=== PATIENT | male | born 1945 | race Caucasian/White ===

== ENCOUNTER 2017-02-09 03:39 | Observation (INO) | payer MEDICARE, BC ==
[2017-02-09] MEDS ORDERED: Nitroglycerin 2% OINT* 1 GM PAK TOPICAL ONE (03:49)
[2017-02-09 04:44] LABS: Hematocrit 40 % (42-52); Hemoglobin 13.5 g/dl (14.0-18.0); Mean Corpuscular HGB Conc 34 g/dl (31-36); Mean Corpuscular Hemoglobin 30 pg (27-31); Mean Corpuscular Volume 88 fL (80-94); Mean Platelet Volume 9 um3 (7.4-10.4); Red Blood Count 4.56 10^6/ul (4.0-5.4); Red Cell Distribution Width 13 % (10.5-15); White Blood Count 4.8 10^3/ul (3.5-10.8)
[2017-02-09 05:01] LABS: BUN/Creatinine Ratio 16.3 (8-20); Calcium 9.2 mg/dL (8.6-10.3); EGFR African American 113.4 (>60); EGFR Non-African American 88.2 (>60); Globulin 2.2 g/dL (2-4); Magnesium 2.2 mg/dL (1.9-2.7); Potassium 3.9 mmol/L (3.5-5.0); Total Bilirubin 0.5 mg/dL (0.2-1.0); Total Protein 6.2 g/dL (6.4-8.9)
[2017-02-09 05:03] LABS: Troponin I 0.01 ng/mL (<0.04)
--- NOTE | 2017-02-09 07:00 | ED ---
Lashay Dubose Matthew, scribed for Gennaro Cagle on 02/09/17 at 0408 . HPI Chest Pain - HPI Summary HPI Summary: A 71 y/o male presents to the ED with mid-sternal chest pain since 02:30 this morning. The pain is currently rated 2/10 in severity, and described as pressure. 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 He had a similar episode two weeks ago. Hx of unstable angina 5 years ago. At that time the patient had a cardiac catheterization without stent placement. FHx of CAD. He has not been having SOB with ambulation. - History of Current Complaint Time Seen by Provider: 02/09/17 03:42 Hx Obtained From: Patient Onset/Duration: Started Days Ago, Atraumatic, Still Present Timing: Constant Initial Severity: Moderate Current Severity: Mild Pain Intensity: 2 Pain Scale Used: 0-10 Numeric Chest Pain Location: Mid Sternal Chest Pain Radiates: No Character: Pressure/Squeezing Aggravating Factor(s): Nothing Alleviating Factor(s): NTG 123 Associated Signs and Symptoms: Positive: Chest Pain, Palpitations. Negative: Shortness of Breath, Nausea, Vomiting, Edema - Allergy/Home Medications Allergies/Adverse Reactions: Allergies Allergy/AdvReac Type Severity Reaction Status Date / Time local anestetic from dentist AdvReac See Comment Uncoded 02/09/17 04:10 Home Medications: Home Medications Cholecalciferol [Vitamin D] 1,000 unit PO 02/09/17 [History] FLUoxetine CAP* [PROzac CAP*] 40 mg PO DAILY 02/09/17 [History Confirmed ] Lovastatin [Mevacor] 40 mg PO 02/09/17 [History] Metoprolol Tartrate [Lopressor] 50 mg PO 02/09/17 [History] Multiple Vitamins W/ Minerals [Multivitamin Adults] 1 tab PO 02/09/17 [History] Nitroglycerin 0.4 mg SL 02/09/17 [History] PMH/Surg Hx/FS Hx/Imm Hx Endocrine/Hematology History: Denies: Hx Anticoagulant Therapy Cardiovascular History: Reports: Hx Angina Respiratory History: Denies: Hx Asthma Psychiatric History: Denies: Hx Substance Abuse - Surgical History Surgery Procedure, Year, and Place: cardiac cath 2010 - Family History Known Family History: Positive: Cardiac Disease - Social History Alcohol Use: None Substance Use Type: Reports: None Hx Tobacco Use: No Review of Systems Constitutional: Negative Eyes: Negative ENT: Negative Positive: Palpitations, Chest Pain Respiratory: Negative Negative: Shortness Of Breath Gastrointestinal: Negative Negative: Vomiting, Nausea Genitourinary: Negative Musculoskeletal: Negative Negative: Edema Skin: Negative Neurological: Negative Psychological: Normal All Other Systems Reviewed And Are Negative: Yes Physical Exam Triage Information Reviewed: Yes Vital Signs Reviewed: Yes Appearance: Positive: Well-Appearing, No Pain Distress Skin: Positive: Warm, Skin Color Reflects Adequate Perfusion, Dry Head/Face: Positive: Normal Head/Face Inspection Eyes: Positive: EOMI, LAUREN ENT: Positive: Normal ENT inspection Neck: Positive: Supple, Nontender Respiratory/Lung Sounds: Positive: Clear to Auscultation, Breath Sounds Present Cardiovascular: Positive: RRR, Pulses are Symmetrical in both Upper and Lower Extremities Abdomen Description: Positive: Nontender, Soft Bowel Sounds: Positive: Present Musculoskeletal: Positive: Normal, Strength/ROM Intact Neurological: Positive: Normal, Sensory/Motor Intact, Alert, Oriented to Person Place, Time Psychiatric: Positive: Affect/Mood Appropriate Diagnostics - Laboratory Result Diagrams: 02/09/17 04:35 02/09/17 04:35 Lab Statement: Any lab studies that have been ordered have been reviewed, and results considered in the medical decision making process. - Radiology CXR Xray Interpretation: No Acute Changes Radiology Interpretation Completed By: ED Physician - EKG 04:22 Cardiac Rate: Bradycardia - 50 bpm EKG Rhythm: Sinus Bradycardia Ectopy: PVCs Chest Pain Course/Dx - Course Assessment/Plan: A 71 y/o male presents to the ED with mid-sternal chest pain since 02:30 this morning. The pain is currently rated 2/10 in severity, and described as pressure. 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 He had a similar episode two weeks ago. Hx of unstable angina 5 years ago. At that time the patient had a cardiac catheterization without stent placement. FHx of CAD. He has not been having SOB with ambulation. Labs were reviewed and show troponin of 0.01. CXR showed no acute cardiopulmonary disease. EKG showed Sinus brachycardia at [address] Berg was notified of the admission. Disccused the case with Dr. Murrieta who will admit the patient. - Diagnoses Provider Diagnoses: Chest pain, rule out acute myocardial infarction - Provider Notifications Discussed Care Of Patient With: Dr. Berg (Hospitalist) at 05:12 -- Notified of admission. Dr. Murrieta (Hospitalist) at 06:59 -- Notified of patient's history and will admit the patient. Discharge - Discharge Plan Condition: Stable Disposition: ADMITTED TO [facility] Referrals: Dolores Quinones MD [Primary Care Provider] - The documentation as recorded by the Lashay jay Matthew accurately reflects the service I personally performed and the decisions made by Gurjit gross Emmanuel.
--- NOTE | 2017-02-09 08:29 | RAD ---
Indication: Chest pain. Single frontal view of the chest performed at 0358 hours was reviewed. Comparison is made with previous exam dated December 08, 2012. No mediastinal shift is noted. Heart is of normal size and configuration. Lung rousseau appear clear. IMPRESSION: NO ACTIVE CARDIOPULMONARY DISEASE IS NOTED.
[2017-02-09] MEDS: Aspirin EC Low Dose* 81 MG TAB.EC PO SCH (11:35)
[2017-02-09] MEDS: FLUoxetine CAP* 20 MG PO SCH (11:36)
[2017-02-09] MEDS: Metoprolol Succinate XL TAB* 25 MG PO SCH (13:11)
--- NOTE | 2017-02-09 14:49 | RAD ---
Edited for charges. Indication: Chest pain. Myocardial perfusion scan was performed utilizing 1 day protocol. Rest myocardial perfusion was performed after intravenous injection of 10.4 mCi of technetium 99m tetrofosmin. Exercised stress study was performed and the maximum heart rate achieved was 96% of the maximum predicted value. There is normal size left ventricle with homogeneous distribution of the radiotracer throughout the left ventricle. There is no definite fixed or reversible perfusion defect identified. The ejection fraction at stress is 69%. Evaluation of wall motion demonstrates no focal wall motion abnormality. IMPRESSION: No evidence of fixed or reversible perfusion defect is identified. Normal ejection fraction. ASSESSMENT: Low risk Based on imaging criteria from ACC/AHA 2002 Guideline Update for the Management of Patients With Chronic Stable Angina Table 23. Noninvasive Risk Stratification. MTDD
[2017-02-09] MEDS ORDERED: Atorvastatin* 10 MG TAB PO SCH (21:00)
[2017-02-09] MEDS ORDERED: Metoprolol Succinate XL TAB* 25 MG PO SCH (21:00)
--- NOTE | 2017-02-09 23:43 | CONS ---
CARDIOLOGY CONSULT REPORT: DATE OF CONSULT: 02/09/17 INDICATION FOR CONSULT: The patient presents with chest discomfort and new- onset atrial fibrillation, assess cardiac status. HISTORY OF PRESENT ILLNESS: The patient is a very pleasant 71-year-old gentleman known to me from the distant past dating back to 2011 when he had an abnormal stress test developing ST-segment changes, for which he underwent a cardiac catheterization, which revealed normal left ventricular systolic function with an EF of 55%. There was 55% to 60% proximal lesion in the first diagonal branch in its worse view. There was only mild disease in the LAD and circumflex and minimal disease in the right coronary artery and medical management was pursued. He has a history of hypertriglyceridemia as well with a low HDL. He has done well since that time until more recently now 2 weeks ago , he woke up between the hours of 1 to 3 a.m., got up and went to bathroom, when he came back and lied down, he felt a very mild pressure sensation in his chest. He took one nitroglycerin and within 2 minutes, it was gone. He did not check his pulse at that time. Last night, he woke up at 2:30 in the morning and he noted moderate pressure in his chest. He took a nitroglycerin almost immediately. It started easing off, but then he noticed his pulse was irregular with rapid spells and slowing spells. He ended up waiting 2 or 3 minutes, then they called the paramedics. The paramedics came and found he was in atrial fibrillation. They did not give him any more nitroglycerin, but they repeated the EKG multiple times and found the atrial fibrillation. Vital signs were obtained starting at 3:03 with a blood pressure of 110/69, pulse was 86. The patient had received aspirin therapy. Vital signs later were 151/64 with a pulse of 94 and back down to 130s/ with pulse of 105 to 109. When he presented to the emergency room, an EKG was done at 3:49 a.m. and that EKG demonstrated normal sinus rhythm with 1 PVC. There were no acute ST-T wave changes seen. Since that time on, he has had no further atrial fibrillation. He has had PVCs. His cardiac enzymes were negative and he underwent an exercise nuclear stress test during which time he was exercised by standard Mateusz protocol to 8 minutes 49 seconds achieving 10.1 METs, heart rate to 145, achieving 96% of age predicted maximum heart rate with a normal 1 minute recovery heart rate. He had a normal blood pressure response to exercise. There was a typical minimal chest discomfort not like the type he had at home that was worse that changed with respiration. There were no definitive EKG changes of ischemia noted. The report dictated by Dr. Rossana Magdaleno commented that there were no fixed or reversible perfusion defects. The ejection fraction was 69% with no wall motion abnormalities. It was felt to be a low-risk nuclear portion as well as a low-risk EKG portion. In talking with them, he has not had any other symptoms like this before and both of these seemed to occur during the middle of the night. Whether or not they were present when he woke up the first time, went to the bathroom, and then went back to bed is unclear but he had no specific chest discomfort when he was walking to and from the bathroom. When I asked them whether or not he snores quite a bit, he says he snores extensively but he has never been worked up for any sleep apnea. PAST MEDICAL HISTORY: Includes hyperlipidemia as well as chronic ischemic heart disease, moderate in nature. PAST SURGICAL HISTORY: Just his cardiac catheterization in 2010. FAMILY HISTORY: Positive for cardiac disease. SOCIAL HISTORY: He does not smoke or drink. REVIEW OF SYSTEMS: Constitutional: Negative. Eyes: Negative. ENT: Negative. Cardiac positive for the chest discomfort and palpitations as outlined above. Respiratory: Negative. No shortness of breath. Gastrointestinal: Negative. No vomiting, nauseousness. : Negative. Musculoskeletal: Negative. Skin: Negative. Extremities: No edema. Neuro: Negative. Psychological: Normal. PHYSICAL EXAM: When I see him now reveals pleasant gentleman in no acute distress. Blood pressure 130/74, pulse is in the 40s to 60s, O2 saturation 99% on room air, respirations 18. Neck is supple. No increased JVP. Carotid with good upstroke and volume without bruits. Conjunctivae are pink. Sclerae clear. Lungs reveal no accessory muscle usage. There is good excursion. Lungs are clear to A and P with no active rales, rhonchi, or wheezes. Heart reveals no visible heaves. No palpable heaves or thrills. Normal S1, S2 with no S3, S4, or gallop. No significant systolic or diastolic murmur appreciated. Abdomen is soft, nontender, without organomegaly. Peripheral pulses are intact. Femoral pulse present without bruit. Neuro: The patient is alert and oriented with normal mentation. Musculoskeletal: The patient with normal gait. Psychiatric: The patient with normal affect. DIAGNOSTIC STUDIES/LAB DATA: Laboratory results revealed white count of 4800, hemoglobin and hematocrit of 13.5 and 40, platelet count of 146,000. Sodium 137 , potassium 3.9, chloride 107, bicarb 25, BUN and creatinine of 14 and 0.8. Troponin 0.01, 0.01, 0.00. Magnesium is 2.2 and calcium 9.2, lactic acid 1.9, total protein 6.2. B-natriuretic peptide 102. Chest x-ray report showed no active cardiopulmonary disease. Reviewing the EKGs from the paramedics in transit, the first one with a rhythm strip at 2:55 showing irregularly irregular rhythm suggesting atrial fibrillation with R-R interval as high as 155 to 160 range. A 12-lead EKG done at 0301 showed the atrial fibrillation with a heart rate of 98, third one at 0321 showed heart rate of 104, and fourth one at 0326 showed heart rate of 97, all with atrial fibrillation. OVERALL ASSESSMENT: Ravi Boston presents now with a new-onset paroxysmal atrial fibrillation, converted spontaneously to sinus rhythm on arrival in the hospital. At this point in time, his [id number] score is only 1 and he is currently on baby aspirin therapy and for now we could continue that daily. I would consider increasing his beta patricia, but his baseline pulse rate has been low, but that is mostly within sitting around not doing anything. He does have a chronotropic response with exercise as we were able to increase his heart rate as high as 140 with exercise and his atrial fibrillation rate was as high as the 150s 9 R-R intervals). Consideration to adding 12.5 mg of metoprolol succinate in the evening would be appropriate. In the meantime, given the fact that he does snore significantly, we will get a overnight pulse ox on him off oxygen, so that we can monitor and see whether or not he drops his O2 saturations. He already has had a magnesium and potassium and they are not that grossly abnormal. At this point in time, I will discuss with you whether or not you have recent thyroid functions on him as well to complete the workup. We will consider getting an echocardiogram on him which could be done first thing tomorrow morning to assess his left and right atrial sizes in light of the paroxysmal atrial fibrillation. Thank you very much for asking us to see him and I will follow him with you. CC: Dr. Dolores Quinones * [id number]/[facility] #: [id number] MTDD
[2017-02-10 08:04] VITALS: BP 99/63
[2017-02-10] MEDS: Aspirin EC Low Dose* 81 MG TAB.EC PO SCH (08:46)
[2017-02-10] MEDS: FLUoxetine CAP* 20 MG PO SCH (08:46)
[2017-02-10] MEDS: Metoprolol Succinate XL TAB* 25 MG PO SCH (08:47)
--- NOTE | 2017-02-10 10:09 | ECHO ---
Patient: HERI HAWKINS Rec#: [id number] : 1945 Date: 02/10/2017 Age: 71y Height: 177.8 cm / 70.0 in Weight: 86.18 kg / 189.9 lbs Sex: M BSA: 2.04 Room#: 446 Admit Date#: 02/09/2017 Type: Inpatient Referring: Arthur Morris MD Reading: Arthur Morris MD Internet Marketing Analyst: Humera Adams NILSA CC: Dolores Quinones MD Transthoracic Echocardiogram Indication: PAF BP: 121/65 HR: 54 Rhythm: Bradycardia Findings History: HLD,CAD,ischemic heart disease. Technical Comments: The study quality is good. Comp[leted at 1008. Left Ventricle: The left ventricular chamber size is normal. Global left ventricular wall motion and contractility are within normal limits. Left ventricular systolic function is at the lower limits of normal. The estimated ejection fraction is 50-55%. Abnormal left ventricular diastolic filling is observed, consistent with impaired relaxation. The absence of left atrial enlargement suggests this finding is not chronic and may not have clinical significance. Left Atrium: The left atrial chamber size is normal. Right Ventricle: The right ventricular cavity size is normal. The right ventricular global systolic function is mildly reduced. Right Atrium: The right atrial cavity size is normal. Aortic Valve: The aortic valve is trileaflet. There is trace to mild aortic regurgitation. There is no evidence of aortic stenosis. Mitral Valve: The mitral valve leaflets are mildly thickened. There is a trace of mitral regurgitation. There is no evidence of mitral stenosis. Tricuspid Valve: The tricuspid valve leaflets are normal. There is trace to mild tricuspid regurgitation. Unable to estimate the right ventricular systolic pressure. There is no tricuspid stenosis. Pulmonic Valve: The pulmonic valve appears normal. There is trace to mild pulmonic regurgitation. There is no pulmonic stenosis. Pericardium: A pericardial fat pad is visualized. Aorta: There is no dilatation of the ascending aorta. There is no dilatation of the aortic arch. There is no dilation of the aortic root. Pulmonary Artery: The main pulmonary artery appears normal. Venous: The venous system is not well visualized. Conclusions Left ventricular systolic function is at the lower limits of normal. The estimated ejection fraction is 50-55%. No significant valvular disease: There is trace to mild aortic regurgitation. There is a trace of mitral regurgitation. There is trace to mild tricuspid regurgitation. There is trace to mild pulmonic regurgitation. No reports of prior studies offered for comparison. Measurements Name Value Normal Range RVIDd (AP) 2D 4 cm (0.9 - 2.6) RVDdMajor (2D) 2.6 cm (2.2 - 4.4) RAd ISD 4CH 5.6 cm (3.4 - 4.9) RA (A4C)W 3.1 cm (2.9 - 4.6) IVSd (2D) 1 cm (0.6 - 1) LVPWd (2D) 1.3 cm (0.6 - 1) LVIDd (2D) 3.5 cm (3.6 - 5.4) LVIDs (2D) 2.9 cm - LV FS (2D) 17 % (25 - 45) Aortic Annulus 2.1 cm (1.4 - 2.6) Ao root diameter (2D) 3.5 cm (2.1 - 3.5) Ascending Ao 3.1 cm (2.1 - 3.4) Aortic arch 2.6 cm (1.8 - 3.4) Descending Ao 0.7 cm - LA dimension (AP) 2D 3.7 cm (2.3 - 3.8) LAd ISD 4CH 6 cm (2.9 - 5.3) LA ISD 4CH W 3.8 cm (2.5 - 4.5) Name Value Normal Range LA ESV SP 4CH (A/L) 46 ml - LA ESV SP 2CH (A/L) 70 ml - LA ESV BP (A/L) 58 ml - LA ESV BP (A/L) index 28.53 ml/m2 - LA ESV SP 4CH (MOD) 43 ml - LA ESV SP 2CH (MOD) 68 ml - Name Value Normal Range MV E-wave Vmax 0.5 m/sec - MV deceleration time 327 msec - MV A-wave Vmax 0.6 m/sec - MV E:A ratio 0.83 ratio - LV septal e' Vmax 0.07 m/sec - LV lateral e' Vmax 0.14 m/sec - LV E:e' septal ratio 7.14 ratio - LV E:e' lateral ratio 3.57 ratio - Name Value Normal Range AV Vmax 1.2 m/sec - AV VTI 31.1 cm - AV peak gradient 6.11 mmHg - AV mean gradient 3.22 mmHg - LVOT Vmax 1.1 m/sec - LVOT VTI 24.4 cm - LVOT peak gradient 4.81 mmHg - LVOT mean gradient 2.12 mmHg - AR PHT 669 msec - AR peak gradient 31.62 mmHg - Name Value Normal Range TR Vmax 2.4 m/sec - TR peak gradient 24 mmHg - RAP 8 mmHg - RVSP 32 mmHg - Name Value Normal Range PV Vmax 0.9 m/sec - PV peak gradient 2.92 mmHg -
--- NOTE | 2017-02-10 14:59 | HP ---
HISTORY AND PHYSICAL: DATE OF ADMISSION: 02/09/17 HISTORY OF PRESENT ILLNESS: Ravi Vasquez is a 71-year-old man admitted with chest pain and palpitations. The patient has a history of coronary artery disease. He had an abnormal stress test in 2011. He underwent a cardiac catheterization. He had a normal ejection fraction, 55% to 60% proximal first diagonal stenosis, mild LAD and circumflex disease, minimal right coronary artery disease. He was placed on medical management. He has been on beta- patricia, statin, see below. Two weeks ago, he awoke to go to the bathroom to urinate and on getting back to bed, had unusual pressure in his chest, so he took nitroglycerin under his tongue and the pressure was gone in 2 minutes. He called the cardiology office and was told to let them know if this happened again. Last night, he had chest pressure again at night, which was worse tahn the time before. The nitroglycerin he took lessened the pain, but it did not go away and he noted intermittent fast beating of his heart, lasting 15 to 20 seconds, so he called 911. When the horseradish maker came, they gave him aspirin 81 mg x4. The patient believes he had pressure for about an hour in the ER, but he did not get more nitroglycerin. It has now resolved. He had been active over the weekend doing chores at home in the kitchen and doing laundry. He did not have any chest pain with that. He generally walks around the perimeter at [facility] and has not had chest pain doing that. With the chest pain he had last night, he had no jaw or arm discomfort, shortness of breath, nausea, or diaphoresis. PAST MEDICAL HISTORY: Significant for the cardiac cath as noted in 2011. He has a history of depression for which he is on fluoxetine (see below). CURRENT MEDICATIONS: 1. Fluoxetine 20 mg daily. 2. Metoprolol XL 25 mg daily. 3. Aspirin 81 mg daily. 4. Lovastatin 40 mg daily. 5. Fish oil 1 daily. 6. Multivitamins 1 every other day. 7. Vitamin D 2000 units every other day. 8. Calcium 1 every other day (he is not sure exactly of these doses because his puts them out for him). ALLERGIES: None. INJURIES: None significant. INFECTIONS: He had a recent URI. FAMILY HISTORY: Positive for coronary artery disease. His father of an CO. SOCIAL AND PERSONAL HISTORY: The patient is retired. He lives at [facility] in a cottage. His has physical disabilities and he helps care for her. He has to help dress her. He does most of the chores around the house. HABITS: Tobacco: None. EtOH: No significant alcohol intake. REVIEW OF SYSTEMS: General: His energy has been lower with his recent cold, but had been better in the last few days. He denied fevers, chills, or sweats. He generally sleeps well. His appetite is good and his weight has gone down 10 pounds over the last 6 months by decreasing his calorie and increasing his exercise. Skin: Negative. HEENT: See above. He is slightly hard of hearing. Nodes: He believes he had some lymph node swelling with his URI, which has resolved. Heme: Negative. Endocrine: Negative. Respiratory: Negative. Cardiovascular: See above. GI: Negative. : Negative. Musculoskeletal: Negative. Neuro: He has occasional tension headaches. Psych: He has history of depression. His mood is good when he is on fluoxetine. PHYSICAL EXAMINATION GENERAL: He is a well-developed, well-nourished male, in no acute distress. VITAL SIGNS: Blood pressure 125/67, pulse 50, respirations 20, temperature 98.1 , and O2 sat 95%. SKIN: Warm and dry. HEENT: Mucous membranes are moist. NECK: Nodes are without adenopathy. Neck is without thyromegaly or bruits. CHEST: Clear. HEART: Regular. S1 and S2. No murmurs, gallops, or rubs. ABDOMEN: Soft with mild suprapubic tenderness. No masses or organomegaly. Bowel sounds are normal. EXTREMITIES: Without cyanosis, clubbing, or edema. NEUROLOGIC: Without gross focal or lateralizing signs. DIAGNOSTIC STUDIES/LAB DATA: CBC: WBC 4.8, H and H 13.5/40, MCV 88, PLT 146, 000. This H and H and platelet count is normal for him. INR 0.98 and PTT 34.3. Chemistry; sodium 137, potassium 3.9, chloride 107, CO2 25, BUN and creatinine 14/0.86, glucose 103, and lactic acid 0.9. The rest of the comprehensive metabolic panel was normal. Two troponins have been 0.01 and 0.01. BNP essentially normal at 102. Magnesium normal at 2.2. Chest x-ray shows no acute disease. EKG shows sinus bradycardia, PVC, otherwise normal EKG and except for the PVC, no change since 11/03/12 EKG. IMPRESSION: The patient with angina and palpitations with a history of coronary artery disease. Troponins will continue to be followed. We will plan to get a nuclear stress test and discuss with financial services professional. In view of his cardiac run sheets, he does appear to have paroxysmal atrial fibrillation and this would go along with the palpations he had. He will be on telemetry monitoring. He will continue metoprolol, lovastatin, and p.r.n. nitroglycerin. He is a full code. He will be ambulatory, so will not need DVT prophylaxis. [id number]/[facility] #: [id number] MTDD
--- NOTE | 2017-02-11 00:59 | DS ---
DISCHARGE SUMMARY: DATE OF ADMISSION: 02/09/17 DATE OF DISCHARGE: 02/10/17 DISCHARGE DIAGNOSES: 1. Chest pain with history of coronary artery disease. 2. Paroxysmal atrial fibrillation. 3. Hyperlipidemia. 4. History of depression. HISTORY: Ravi Vasquez is a 71-year-old man admitted with chest pain and palpitations. Please see the dictated admission note for details of the present illness, past medical history, family history, social and personal history, review of systems, and physical examination. DIAGNOSTIC STUDIES/LAB DATA: CBC: WBC 4.8, H and H 13.5/40, MCV 88, and PLT 146K. INR and PTT normal. Chemistry: Sodium 137, potassium 3.9, chloride 107, CO2 25, BUN and creatinine 14/0.86, glucose 103, lactic acid 0.9. Rest of the comprehensive metabolic panel is essentially within normal limits. BNP was 102. Three troponins were 0.01, 0.01, and 0. TSH was normal. Imaging: Chest x-ray showed no acute disease. Nuclear stress test images showed low risk. EKG showed a PVC, otherwise within normal limits and no change. Transthoracic echocardiogram showed normal EF, no significant valvular disease, left atrium was normal. Overnight oximetry showed that his O2 sat was less than 90% for 2 minutes and 4 seconds, which was 0.5% of the time; less than 89% for 1 minute and 4 seconds which was 0.3% of the time. He had an O2 sat ranging from 85% to 99%. The longest continuous time less than 89% was for 24 seconds at 2:39 a.m. There were 12 desaturation events over 3 minutes in duration, which was defined as a saturation decrease of 4% or more. There were 34 desaturation events of less than 3 minutes. The mean high was 95.41% and the mean low was 89.8%. The mean length of desaturation events that were greater than 10 seconds and less than 3 minutes was 38.8 seconds. HOSPITAL COURSE: The patient was admitted. He ruled out for an IL. He had a nuclear stress test. This was low risk. He demonstrated a brief 3-beat run of idioventricular rhythm, rate 75, and a 13-beat atrial fibrillation of 131 during his hospitalization; these were asymptomatic. His metoprolol was increased from 25 mg daily to 25 in the morning, 12.5 at night with a plan to increase to 25 twice a day. His other medications were continued with other substitution of atorvastatin for lovastatin. He was ambulatory. He had no further symptoms. It seemed likely that the atrial fibrillation and chest pain were related. Dr. Sears saw him in cardiology consultation. He felt that he could tolerate increasing the dose of metoprolol because he had a normal chronotropic response to exercise and he had a rapid ventricular response rate with atrial fibrillation. His CHADS2-VASC score was [address] Sears did not feel he needed anti-coagulation. DISCHARGE MEDICATIONS: At the time of discharge, he is being discharged on: 1. Aspirin 81 mg daily. 2. Metoprolol 25 mg in the morning, 12.5 mg at night. 3. Duloxetine 20 mg daily. 4. Lovastatin 40 mg daily. 5. Fish oil once a day. 6. Vitamin D 1000 units once a day. DIET: He is to be on a Mediterranean-type diet. ACTIVITY: His activity is as tolerated. DISCHARGE FOLLOWUP: He is to follow up with me in 1 to 2 weeks at resident care at [facility]. CC: [facility]; Dr. Arthur Morris* [id number]/[facility] #: [id number] MTDD
[2017-02-11 13:30] LABS: TSH (Thyroid Stimulating Horm) 1.52 mcIU/mL (0.34-5.60)
== END 2017-02-10 11:25 | disposition home or self-care (01) ==
LOC: ED 03:39 → MEDTELE 07:20
PROVIDERS: ADMIT Hospitalist; ATTEND Internal Medicine Geriatric Medicine
DX: R07.9 Chest pain, unspecified (principal); I48.0 Paroxysmal atrial fibrillation; I25.10 Atherosclerotic heart disease of native coronary artery without angina pectoris; E78.5 Hyperlipidemia, unspecified; F32.9 Major depressive disorder, single episode, unspecified; I49.3 Ventricular premature depolarization; Z79.82 Long term (current) use of aspirin; Z82.49 Family history of ischemic heart disease and other diseases of the circulatory system; R06.83 Snoring
CPT/HCPCS: 36415; 71010; 78452; 80053; 83605; 83735; 83880; 84443; 84484; 85025; 85610; 85730; 93005; 93017; 93306; 99284; A9270-GY; A9502; G0378

== ENCOUNTER → 2017-06-18 02:41 | Emergency (ER) | payer MEDICARE, BC ==
[2017-06-18 04:27] LABS: Hematocrit 41 % (42-52); Hemoglobin 13.7 g/dl (14.0-18.0); Mean Corpuscular HGB Conc 33 g/dl (31-36); Mean Corpuscular Hemoglobin 30 pg (27-31); Mean Corpuscular Volume 90 fL (80-94); Mean Platelet Volume 9 um3 (7.4-10.4); Red Cell Distribution Width 13 % (10.5-15); White Blood Count 5.1 10^3/ul (3.5-10.8)
[2017-06-18 04:29] LABS: Albumin 4.1 g/dL (3.2-5.2); BUN/Creatinine Ratio 15.6 (8-20); Calcium 9.3 mg/dL (8.6-10.3); EGFR African American 107.3 (>60); EGFR Non-African American 83.4 (>60); Globulin 2.1 g/dL (2-4); Potassium 4.1 mmol/L (3.5-5.0); Total Bilirubin 0.5 mg/dL (0.2-1.0); Total Protein 6.2 g/dL (6.4-8.9); Troponin I 0.01 ng/mL (<0.04)
--- NOTE | 2017-06-18 06:43 | ED ---
Everton Dubose Rebecca, scribed for Mason Cagleuel on 06/18/17 at 0438 . Palpitations / Dysrhythmia - HPI Summary HPI Summary: Pt is a 72 y/o M BIBA who presents to ED c/o sudden onset palpitations. Sx began at 0130 this morning, characterized as fast and irregular. Additionally c/ o brief, tight sensation at the "base of my throat." Denies abd pain, edema. Sx aggravated by nothing, alleviated by spontaneous resolution. Pt confirms his sx have resolved. PMHx angina and A Fib. only blood thinner is ASA. Last stress test was in January. - History of Current Complaint Time Seen by Provider: 06/18/17 04:19 Hx Obtained From: Patient Onset/Duration: Sudden Onset, Resolved Severity Initially: Moderate Severity Currently: None Character: Fast, Irregular Aggravating: Nothing - Allergy/Home Medications Allergies/Adverse Reactions: Allergies Allergy/AdvReac Type Severity Reaction Status Date / Time Lidocaine [From Xylocaine] AdvReac Intermediate See Comment Verified 02/09/17 23 :53 local anestetic from dentist AdvReac Intermediate See Comment Uncoded 02/09/17 23:53 PMH/Surg Hx/FS Hx/Imm Hx Endocrine/Hematology History: Denies: Hx Anticoagulant Therapy, Hx Diabetes Cardiovascular History: Reports: Hx Angina, Hx Atrial Fibrillation, Hx Hypercholesterolemia, Other Cardiovascular Problems/Disorders - angina, heart cath Denies: Hx Coronary Artery Disease, Hx Hypertension, Hx Myocardial Infarction Respiratory History: Denies: Hx Asthma, Hx Chronic Obstructive Pulmonary Disease (COPD) Psychiatric History: Reports: Hx Depression Denies: Hx Substance Abuse - Surgical History Surgery Procedure, Year, and Place: cardiac cath 2010 Infectious Disease History: Denies: Traveled Outside the [place] in Last 30 Days - Family History Known Family History: Positive: Cardiac Disease - Social History Alcohol Use: None Substance Use Type: Reports: None Hx Tobacco Use: No Smoking Status (MU): Never Smoked Tobacco Review of Systems Positive: Other - tight sensation at the "base of my throat" Positive: Palpitations - resolved Negative: Abdominal Pain Negative: Edema All Other Systems Reviewed And Are Negative: Yes Physical Exam Triage Information Reviewed: Yes Vital Signs Reviewed: Yes Appearance: Positive: Well-Appearing, No Pain Distress Skin: Positive: Warm, Skin Color Reflects Adequate Perfusion, Dry Head/Face: Positive: Normal Head/Face Inspection Eyes: Positive: EOMI, LAUREN ENT: Positive: Normal ENT inspection Neck: Positive: Supple, Nontender Respiratory/Lung Sounds: Positive: Clear to Auscultation, Breath Sounds Present Cardiovascular: Positive: RRR, Pulses are Symmetrical in both Upper and Lower Extremities Abdomen Description: Positive: Nontender, Soft Bowel Sounds: Positive: Present Musculoskeletal: Positive: Normal, Strength/ROM Intact Neurological: Positive: Normal, Sensory/Motor Intact, Alert, Oriented to Person Place, Time Diagnostics - Laboratory Lab Results: Lab Results 06/18/17 06/18/17 Range/Units 03:00 03:00 WBC 5.1 (3.5-10.8) 10^3/ul RBC 4.60 (4.0-5.4) 10^6/ul Hgb 13.7 L (14.0-18.0) g/dl Hct 41 L (42-52) % MCV 90 (80-94) fL MCH 30 (27-31) pg MCHC 33 (31-36) g/dl RDW 13 (10.5-15) % Plt Count 133 L (150-450) 10^3/ul MPV 9 (7.4-10.4) um3 INR (Anticoag Therapy) 0.94 (0.89-1.11) APTT 32.0 (26.0-36.3) seconds Result Diagrams: 06/18/17 03:00 06/18/17 03:00 Lab Statement: Any lab studies that have been ordered have been reviewed, and results considered in the medical decision making process. - Radiology CXR Xray Interpretation: No Acute Changes Radiology Interpretation Completed By: ED Physician - EKG [id number] Cardiac Rate: Bradycardia - 47 bpm EKG Rhythm: Sinus Bradycardia EKG Interpretation: No acute changes Re-Evaluation - Re-Evaluation First Eval Re-Evaluation Time: 06:35 Change: Improved Comment: Discussed lab and radiology results as well as D/C plan. Course/Dx - Course Assessment/Plan: Pt is a 72 y/o M BIBA who presents to ED c/o sudden onset palpitations characterized as fast and irregular at 0130. Additionally c/o brief , tight sensation at the "base of my throat." Denies abd pain, edema. Sx alleviated by spontaneous resolution. Pt confirms his sx have resolved. PMHx angina and A Fib. only blood thinner is ASA. Last stress test was in January. EKG reveals sinus bradycardia. CXR reveals no acute findings. First troponin is 0.01 , second troponin is 0.00. Pt will be D/C to home with Dx of palpitations. He understands and agrees. Patient medications reviewed this visit. - Diagnoses Provider Diagnoses: Palpitations Discharge - Discharge Plan Condition: Stable Disposition: HOME Patient Education Materials: Palpitations (ED) Referrals: Dolores Quinones MD [Primary Care Provider] - 3 Days The documentation as recorded by the Everton jay Rebecca accurately reflects the service I personally performed and the decisions made by , Gennaro Calge.
--- NOTE | 2017-06-18 08:06 | RAD ---
INDICATION: Palpitations. COMPARISON: Comparison is made with a prior study from February 09, 2017. TECHNIQUE: A portable view of the chest was obtained. FINDINGS: Cardiac and mediastinal contours appear to be within normal limits. The lungs are clear. No pleural effusion is seen. IMPRESSION: NO EVIDENCE FOR ACUTE DISEASE.
== END | disposition home or self-care (01) ==
LOC: ED 02:41
DX: R00.2 Palpitations (principal)
CPT/HCPCS: 36415; 71010; 80053; 83880; 84484; 85027; 85610; 85730; 93005; 99283